=== PATIENT | female | born 1960 | race Caucasian/White ===

== ENCOUNTER 2018-12-05 00:54 | Inpatient (IN) | payer MEDICAID ==
[~2018-12-05] VITALS: Ht 162.6 cm; Wt 75.1 kg
[2018-12-05] MEDS ORDERED: SODIUM CHLORIDE 0.9% 1,000 ML IV ONE ×2 (03:12→09:30)
[2018-12-05] MEDS ORDERED: KETOROLAC 30MG/ML VIAL IV STA ×2 (03:12→07:17)
[2018-12-05] MEDS ORDERED: ONDANSETRON HCL 4MG/2ML INJ IV STA (03:12)
[2018-12-05 03:29] LABS: BASOPHILS % 0.9 % (0.0-2.0); EOSINOPHILS % 2.1 % (0.0-5.0); HEMATOCRIT. 45.6 % (36.0-48.0); HEMOGLOBIN. 15.1 g/dL (12.0-16.0); LYMPHOCYTES % 17.4 % (20.0-50.0); MEAN CORPUSCULAR VOLUME 81.6 fL (81.0-99.0); MEAN PLATELET VOLUME 8.4 fl (7.4-10.4); MONOCYTES % 5.1 % (2.0-8.0); NEUTROPHILS % 74.5 % (40.0-76.0); PLATELET 268 x1000/uL (130-400); RED BLOOD CELL COUNT 5.59 mill/uL (4.2-5.4); RED CELL DISTRIBUTION WIDTH 14.6 % (11.6-14.6)
[2018-12-05 03:30] LABS: CHLORIDE 106 mEq/L (98-107)
[2018-12-05 03:34] LABS: ETHANOL BLOOD < 10 mg/dL
[2018-12-05 05:57] LABS: CLARITY URINE CLEAR (CLEAR); COLOR URINE YELLOW (YELLOW); KETONES URINE NEGATIVE (NEGATIVE); LEUKOCYTE ESTERASE URINE NEGATIVE (NEGATIVE); NITRITE URINE NEGATIVE (NEGATIVE); OCCULT BLOOD URINE NEGATIVE (NEGATIVE); PROTEIN URINE NEGATIVE (NEGATIVE); SPECIFIC GRAVITY URINE 1.022 (1.005-1.030)
[2018-12-05 06:20] LABS: *AMPHETAMINES SCREEN URINE PRESUMTIVE POSITIVE (NEGATIVE); *BARBITURATES SCREEN URINE NEGATIVE (NEGATIVE); *BENZODIAZEPINES SCREEN URINE NEGATIVE (NEGATIVE); *COCAINE SCREEN URINE NEGATIVE (NEGATIVE); METHADONE URINE SCREEN NEGATIVE (NEGATIVE); OPIATES URINE SCREEN NEGATIVE (NEGATIVE); PHENCYCLIDINE URINE SCREEN NEGATIVE (NEGATIVE)
[2018-12-05 06:21] LABS: CANNABINOID URINE SCREEN NEGATIVE (NEGATIVE)
[2018-12-05] MEDS ORDERED: CYCLOBENZAPRINE 10MG TABLET PO ONE (07:30)
[2018-12-05] MEDS ORDERED: MECLIZINE 25MG TABLET PO ONE (08:45)
[2018-12-05] MEDS ORDERED: IOHEXOL-350 100 ML BOTTLE ONE (12:09)
[2018-12-05] MEDS ORDERED: ONDANSETRON HCL 4MG/2ML INJ IV PRN (14:45)
[2018-12-05] MEDS ORDERED: ACETAMINOPHEN 325MG TABLET PO PRN (14:45)
[2018-12-05] MEDS ORDERED: KETOROLAC 30MG/ML VIAL IV PRN (14:45)
[2018-12-05 15:24] VITALS: BP 97/45
[2018-12-05 16:00] VITALS: BP 135/76
[2018-12-05 18:02] VITALS: BP 97/45
[2018-12-05] MEDS: MECLIZINE 25MG TABLET PO PRN (19:48)
[2018-12-05 20:00] VITALS: BP 120/68
[2018-12-05] MEDS: HYDROCODONE/ACETAMINOPHEN 10/325MG TABLET PO PRN (22:13)
[2018-12-06] VITALS: BP 98/57
[2018-12-06 04:00] VITALS: BP_SYST 114; BP_SYST 117; BP_DIAS 63; BP_DIAS 83
[2018-12-06 06:46] LABS: BASOPHILS % 0.7 % (0.0-2.0); EOSINOPHILS % 3.1 % (0.0-5.0); HEMATOCRIT. 41.3 % (36.0-48.0); LYMPHOCYTES % 40.8 % (20.0-50.0); MEAN CORPUSCULAR HEMOGLOBIN 27.7 pg (28.0-32.0); MEAN CORPUSCULAR VOLUME 81.8 fL (81.0-99.0); MEAN PLATELET VOLUME 8.6 fl (7.4-10.4); NEUTROPHILS % 48.4 % (40.0-76.0); PLATELET 247 x1000/uL (130-400); RED BLOOD CELL COUNT 5.05 mill/uL (4.2-5.4); RED CELL DISTRIBUTION WIDTH 14.6 % (11.6-14.6)
[2018-12-06 07:23] LABS: CHLORIDE 111 mEq/L (98-107)
[2018-12-06 08:00] VITALS: BP 101/74
[2018-12-06] MEDS: MECLIZINE 25MG TABLET PO PRN (08:58)
[2018-12-06 12:00] VITALS: BP 112/62
[2018-12-06 16:00] VITALS: BP 116/64
[2018-12-06] MEDS: HYDROCODONE/ACETAMINOPHEN 10/325MG TABLET PO PRN (18:21)
[2018-12-06 20:00] VITALS: BP 118/60
[2018-12-06] MEDS ORDERED: ATORVASTATIN CALCIUM 40MG TABLET PO SCH (21:00)
[2018-12-07] VITALS: BP 116/62
[2018-12-07] MEDS: HYDROCODONE/ACETAMINOPHEN 10/325MG TABLET PO PRN (02:13)
[2018-12-07 04:00] VITALS: BP 92/50
[2018-12-07 07:55] VITALS: BP_SYST 107; BP_SYST 97; BP_SYST 99; BP_DIAS 63; BP_DIAS 68
[2018-12-07] MEDS: MECLIZINE 25MG TABLET PO PRN (10:56)
[2018-12-07 12:00] VITALS: BP 117/69
[2018-12-07 12:54] VITALS: BP 120/66
== END 2018-12-07 13:18 | disposition home or self-care (01) | DRG 347 ==
LOC: ER 00:54 → 5WST 13:34 → EDBEDREQ 13:36 → ENRESERV 14:41
PROVIDERS: ADMIT Internal Medicine; ATTEND Internal Medicine
DX: M48.061 Spinal stenosis, lumbar region without neurogenic claudication (principal); G90.8 Other disorders of autonomic nervous system; M48.02 Spinal stenosis, cervical region; F15.10 Other stimulant abuse, uncomplicated; J98.11 Atelectasis; F17.210 Nicotine dependence, cigarettes, uncomplicated; Z88.5 Allergy status to narcotic agent; Z90.710 Acquired absence of both cervix and uterus; Z71.6 Tobacco abuse counseling; R26.9 Unspecified abnormalities of gait and mobility; G95.9 Disease of spinal cord, unspecified
CPT/HCPCS: 36415; 70496; 70551; 71045; 72131; 72141; 72148; 80048; 80061; 80305; 80320; 81003; 84145; 84443; 84484; 93005; 93306; 93970; 97162; J1885; J2405; J7030; J8597; Q9967; G0480